=== PATIENT | female | born 1995 | race Caucasian/White ===

== ENCOUNTER 2021-07-31 00:16 | Observation (INO) | payer MEDICAID, SELFPAY ==
[2021-07-31] VITALS (8 sets, daily range): BP systolic 103–120; BP diastolic 61–75; PULSE 62–98; RESP 16–18; TEMP 36.3–37.3; O2SAT 90–100; BMI 19.2; BMI 19.1
[2021-07-31 00:53] LABS: Absolute Lymphocyte Count 1.59 X10^3/uL (0.83-4.51); Basophil# 0.02 X10^3/uL; Basophil% 0.2 % (0-1); Eosinophil# 0.16 X10^3/uL; Eosinophils% 1.9 % (0-5); Hematocrit 40.3 % (37-47); Hemoglobin 13.6 g/dL (12.0-15.0); Lymphocyte # 1.59 X10^3/ul (0.83-4.51); Lymphocyte % 19.3 % (19-41); Mean Corp Hgb Conc 33.7 g/dL (32-36); Mean Corpuscular Volume 94.8 fL (81-99); Mean Platelet Vol. 9.2 fl (6.2-12.0); Monocyte# 0.47 X10^3/uL; Monocyte% 5.7 % (0-10); NRBC Flagged by Analyzer 0 % (0-5); Neutrophil # 5.99 X10^3/uL (2.7-7.7); Neutrophil % 72.7 % (47-70); Platelet Count 284 K/mm3 (150-450); RBC Distribution Width CV 11.9 % (11.6-14.6); RBC Distribution Width SD 41.4 fl (35.1-43.9); Red Blood Count 4.25 M/mm3 (4.2-5.4); White Blood Count 8.3 K/mm3 (4.4-11.0)
[2021-07-31 01:15] LABS: Anion Gap 7 (5-15); BUN 9 mg/dL (7-18); Chloride 105 mmol/L (98-107); Creatinine, Serum 0.82 mg/dL (0.55-1.02); EST Glomerular Filtration Rate 91 mL/min (>60); Est Glom Filt Rate - Afr Amer 110 mL/min (>60); Estimated Creatinine Clearance 79.54 ml/min; Glucose 87 mg/dL (74-106); Potassium 3.4 mmol/L (3.5-5.1); Sodium Level 141 mmol/L (136-145)
[2021-07-31 01:18] LABS: Alcohol, Blood (Medical)-Serum < 3.0 mg/dL
[2021-07-31 01:20] LABS: Internal QC Validated? YES +Cl - CLEAR BKGD; Pregnancy, Serum, hCG Quali. NEGATIVE Negative
--- NOTE | 2021-07-31 02:47 | PCM.HP.STD ---
HPI - General HPI Narrative RAYMUNDO HOFF, is a 26 F with a significant history of anxiety depression; questionable PTSD; tobacco abuse and substance abuse who came in with another person (boy)for a joint detoxification. Patient's drug of choice is heroin and fentanyl. She has been using heroin and fentanyl for a year and about a month or 2 months. She does not know the amount she uses per day. However she uses a multiple times in a day: at least 3 times in a day. Last time she used the drugs above was about 4 hours before presentation. Occasionally she also smokes marijuana. [facility] Medical History Anxiety Depression Substance abuse Home Medications NK 07/31/21 [History Last Taken Unknown] Allergy/AdvReac Type Severity Reaction Status Date / Time No Known Allergies Allergy Verified 07/31/21 00:19 Family History other other (Denies knowledge of any paternal medical maternal medical history) Surgical History no surgical history no surgical history Social History Smoking Status: Current every day smoker tobacco type: cigarettes ROS ROS Narrative Constitutional: Denies fever, chills, fatigue, anorexia and change in weight Eyes: Denies blurry vision, change in eye color, change in vision, discharge from eye(s), double vision, erythema, eye pain, loss of vision or other HEENT: Denies abnormal hearing, dysphagia, ear pain, epistaxis, headache(s), hearing loss, nasal congestion, nasal discharge, post nasal drip, sinus pressure, sore throat or other Cardiovascular: Denies chest pain or palpitations. Denies dyspnea on exertion, orthopnea and paroxysmal nocturnal dyspnea Respiratory/Chest: Denies cough, excessive phlegm production, shortness of breath with exertion and wheezing Gastrointestinal: Denies abdominal pain, coffee ground emesis, constipation, diarrhea, dyspepsia, hematemesis, hematochezia, loose stools, melena, nausea, vomiting or other Genitourinary: Denies burning urination, difficulty urinating, dysuria, hematuria, nocturia, urinary frequency, urinary hesitancy, urinary incontinence, urinary urgency or other Musculoskeletal: Denies arthralgias, back pain, joint pain, joint stiffness, joint swelling, myalgias, neck pain or other Neurologic: Denies abnormal gait, abnormal speech, confusion, disequilibrium, dizziness, focal weakness, headache(s), numbness, paresthesias, seizure-like activity, seizures, syncope, tingling, tremor(s) or other Psychiatric: Denies anxiety, depression, homicidal ideation, suicidal ideation or other Endocrinology: Denies change in body appearance, cold intolerance, excessive sweating, heat intolerance, polydipsia, polyuria or other Hematologic/Lymphatic: Denies anemia, easy bleeding, easy bruising, lymphadenopathy or other Integumentary: Denies rashes Allergic/Immunologic: Denies rhinitis, hives, eczema, asthma or other Vital Signs Vital Signs Vital Signs: 07/31/21 00:17 Temperature 97.3 F L Temperature Source Temporal Pulse Rate 98 Respiratory Rate 16 Blood Pressure 120/75 Blood Pressure Mean 90 Pulse Ox 98 Oxygen Delivery Method Room Air Weight Weight: 47.627 kg Body Mass Index (BMI) 19.2 Physical Exam Narrative Physical exam: General: Well-nourished, well-developed. Head: Normocephalic, atraumatic, no tenderness Eyes: PERRLA, EOMI ENT, no trauma, moist mucous membranes, no rhinorrhea Neck: Nontender, full range of motion, no spinal tenderness, deformities, step-off CVS: Regular rate and rhythm. S1-S2 present. No murmur, gallop or rub. Respiratory : clear to auscultation bilaterally, chest wall nontender, no wheezing Abdomen: Soft, nontender, nondistended, normal bowel sounds, no masses : Deferred Back: Nontender, no CVA tenderness, no midline spinal tenderness, deformities, step-offs Extremities: Nontender full range of motion, no trauma Skin: Normal color, no trauma, abrasions Neuro: Alert, oriented, cranial nerves II through XII grossly intact. Psychiatry: Normal mood. Normal affect. Not depressed. Not anxious. Results Lab / Micro Data Result Diagrams: 07/31/21 00:40 07/31/21 00:40 Labs: Laboratory Results - last 24 hr 07/31/21 00:40: WBC 8.3, RBC 4.25, Hgb 13.6, Hct 40.3, MCV 94.8, MCH 32.0, MCHC 33.7, RDW Std Deviation 41.4, RDW Coeff of Ab 11.9, Plt Count 284, MPV 9.2, Immature Gran % (Auto) 0.200, Neut % (Auto) 72.7 H, Lymph % (Auto) 19.3, Desha % (Auto) 5.7, Eos % (Auto) 1.9, Baso % (Auto) 0.2, Absolute Neuts (auto) 6.0, Absolute Lymphs (auto) 1.59, Nucleated RBC % 0 07/31/21 00:40: Sodium 141, Potassium 3.4 L, Chloride 105, Carbon Dioxide 29.0, Anion Gap 7, BUN 9, Creatinine 0.82, Estim Creat Clear Calc 79.54, Est GFR (MDRD) Af Amer 110, Est GFR (MDRD) Non-Af 91, BUN/Creatinine Ratio 11.0, Glucose 87, Calcium 9.0 07/31/21 00:40: Ethyl Alcohol < 3.0 07/31/21 00:40: Serum , Qual NEGATIVE Assessment & Plan Assessment/Plan (1) Desire for detoxification: (2) Heroin abuse: (3) Fentanyl dependence: (4) Tobacco abuse: PLAN: Opioid dependence with desire for detoxification Patient be started on Subutex and other adjunctive medications: Gabapentin as needed; dicyclomine as needed; Vistaril as needed; methocarbamol as needed; clonidine as needed; Imodium as needed; trazodone as needed and Zofran as needed. Monitor COWS and CINA score Tobacco abuse Counseled Declined nicotine patch Hypokalemia Potassium is mildly decreased at 3.4; asymptomatic. Repeat BMP next day. Marijuana abuse Counseled. DVT prophylaxis Low risk Encourage to ambulate Charges/Coding Visit Charges Inpatient E&M: 80719 Init Hosp L2
[2021-07-31 03:03] LABS: Mucous, Urine 0 SEEN /hpf (<or=2+); Red Blood Cells-Urine 0 SEEN /hpf (0-5)
[2021-07-31 03:05] LABS: Color, Urine Yellow (Yellow); Glucose, Dipstick Normal (Normal); Ketone-Dipstick Negative (Negative); Leukocyte Esterase-Dipstick 25 /ul (Negative); Nitrite-Dipstick Negative (Negative); Occult Blood-Urine Negative /ul (Negative); Protein-Dipstick 30 mg/dl (Negative); Specific Gravity, Urine 1.015 (1.002-1.030); Urine Clarity Clear (Clear); Urine Urobilinogen 4 mg/dl (Normal); Urine pH 6.5 (5.0 - 8.0)
[2021-07-31 03:12] LABS: Urine Bilirubin Dipstick 1 mg/dL (Negative)
[2021-07-31 03:13] LABS: Bacteria 4+ /hpf (None Seen); Squamous Epithelial Cells - UA 0-5 SEEN /hpf (5-10); Transitional Epithelial - Ur 0-5 SEEN /hpf (0-5); White Blood Cells 0-5 SEEN /hpf (0-5)
[2021-07-31 03:20] LABS: Amphetamine Urine VISTA POSITIVE (<1000 ng/mL); Barbiturate Urine VISTA NEGATIVE (< 200 ng/mL); Benzodiazepine Urine VISTA NEGATIVE (< 200 ng/mL); Cocaine Urine VISTA NEGATIVE (< 300 ng/mL); Ecstacy Urine VISTA NEGATIVE (< 500 ng/mL); Methadone Urine VISTA NEGATIVE (< 300 ng/mL); PCP Urine VISTA NEGATIVE (< 25 ng/mL); THC Urine VISTA POSITIVE (< 50 ng/mL); Vista UDS pH Range 6
--- NOTE | 2021-07-31 03:48 | EX.ED.SAOD ---
HPI History of Present Illness Chief Complaint: Substance Abuse Narrative Narrative: 26-year-old female presenting with desire for detox from opioids. She states that she does fentanyl and heroin. She states that she snorts this. Patient states that she does do other drugs but is not addicted to them. She states he is never detoxed before. She states that her last use was 4 hours ago. She currently does not have any significant symptoms. She denies significant medical history. [facility] Medical History Anxiety Depression Substance abuse Home Medications NK 07/31/21 [History Last Taken Unknown] Allergy/AdvReac Type Severity Reaction Status Date / Time No Known Allergies Allergy Verified 07/31/21 00:19 Family History Other Unknown family medical history Family History other Surgical History no surgical history Social History household members: friend(s) and other number of children: 2 Smoking Status: Current every day smoker tobacco type: cigarettes ROS ROS ED Constitutional Constitutional ED: Denies fever(s) or weight loss Eyes Eyes: Denies blurry vision or diplopia ENT ENT ED: Denies rhinorrhea or sore throat Cardiovascular Cardiovascular: Denies chest pain or palpitations Respiratory/Chest Respiratory/Chest: Denies cough or dyspnea Gastrointestinal Gastrointestinal: Denies abdominal pain, diarrhea, nausea or vomiting Genitourinary Genitourinary ED: Denies dysuria Musculoskeletal Musculoskeletal: Denies arthralgias or myalgias Integumentary Denies rash Neurologic Neurologic: Denies headache(s) or weakness Psychiatric Psychiatric: Denies anxiety or depression EXAM Physical Exam Const Vital Signs: 07/31/21 00:17 Temperature 97.3 F L Temperature Source Temporal Pulse Rate 98 Respiratory Rate 16 Blood Pressure 120/75 Blood Pressure Mean 90 Pulse Ox 98 Oxygen Delivery Method Room Air Positive well nourished General Appearance ED: NAD; Negative for pallor HEENT Reports moist mucous membranes atraumatic Eyes PERRL and EOMs intact bilaterally Cardio regular rate and regular rhythm Neuro oriented x3 Sensorium / Orientation: alert Psych mental status grossly normal and thought process normal Skin General Skin Exam: Negative for jaundice or pallor Rashes: no rashes MDM MDM MDM Narrative Medical decision making narrative: Patient presenting with desire to detox from opioids. She admits to fentanyl and heroin. Her toxicology screen is negative for opioids however this might be because she does fentanyl. She is positive for amphetamines and cannabinoids. CBC and BMP are unremarkable. EtOH is negative. Patient's urinalysis shows 4+ bacteria but she is not having any symptoms of UTI. Discussed with hospitalist for admission. Impression: 1. Fentanyl abuse 2. Request for detox Lab Data Labs: Laboratory Results - last 24 hr 07/31/21 07/31/21 07/31/21 00:40 00:40 00:40 WBC 8.3 RBC 4.25 Hgb 13.6 Hct 40.3 MCV 94.8 MCH 32.0 MCHC 33.7 RDW Std Deviation 41.4 RDW Coeff of Ab 11.9 Plt Count 284 MPV 9.2 Immature Gran % (Auto) 0.200 Neut % (Auto) 72.7 H Lymph % (Auto) 19.3 [place] % (Auto) 5.7 Eos % (Auto) 1.9 Baso % (Auto) 0.2 Absolute Neuts (auto) 6.0 Absolute Lymphs (auto) 1.59 Nucleated RBC % 0 Sodium 141 Potassium 3.4 L Chloride 105 Carbon Dioxide 29.0 Anion Gap 7 BUN 9 Creatinine 0.82 Estim Creat Clear Calc 79.54 Est GFR (MDRD) Af Amer 110 Est GFR (MDRD) Non-Af 91 BUN/Creatinine Ratio 11.0 Glucose 87 Calcium 9.0 Serum , Qual Urine Color Urine Clarity Urine pH Ur Specific [place] Urine Protein Urine Glucose (UA) Urine Ketones Urine Occult Blood Urine Nitrite Urine Bilirubin Urine Urobilinogen Ur Leukocyte Esterase Urine RBC Urine WBC Ur Squamous Epith Cells Ur Transition Epith Cell Urine Bacteria Urine Mucus Urine Opiates Screen Urine Methadone Screen Ur Barbiturates Screen Ur Phencyclidine Scrn Ur Amphetamines Screen U Methamphetamin-MDMA U Benzodiazepines Scrn Urine Cocaine Screen U Cannabinoids Screen Ur Drug Screen Comment Ethyl Alcohol < 3.0 07/31/21 07/31/21 07/31/21 00:40 02:55 02:55 WBC RBC Hgb Hct MCV MCH MCHC RDW Std Deviation RDW Coeff of Ab Plt Count MPV Immature Gran % (Auto) Neut % (Auto) Lymph % (Auto) [place] % (Auto) Eos % (Auto) Baso % (Auto) Absolute Neuts (auto) Absolute Lymphs (auto) Nucleated RBC % Sodium Potassium Chloride Carbon Dioxide Anion Gap BUN Creatinine Estim Creat Clear Calc Est GFR (MDRD) Af Amer Est GFR (MDRD) Non-Af BUN/Creatinine Ratio Glucose Calcium Serum , Qual NEGATIVE Urine Color Yellow Urine Clarity Clear Urine pH 6.5 Ur Specific [place] 1.015 Urine Protein 30 H Urine Glucose (UA) Normal Urine Ketones Negative Urine Occult Blood Negative Urine Nitrite Negative Urine Bilirubin 1 H Urine Urobilinogen 4 H Ur Leukocyte Esterase 25 H Urine RBC 0 SEEN Urine WBC 0-5 SEEN Ur Squamous Epith Cells 0-5 SEEN Ur Transition Epith Cell 0-5 SEEN Urine Bacteria 4+ Urine Mucus 0 SEEN Urine Opiates Screen NEGATIVE Urine Methadone Screen NEGATIVE Ur Barbiturates Screen NEGATIVE Ur Phencyclidine Scrn NEGATIVE Ur Amphetamines Screen POSITIVE H U Methamphetamin-MDMA NEGATIVE U Benzodiazepines Scrn NEGATIVE Urine Cocaine Screen NEGATIVE U Cannabinoids Screen POSITIVE H Ur Drug Screen Comment Ethyl Alcohol Discharge Plan Disposition Disposition: Acute Care Hospital [facility] Discharge Date/Time: 07/31/21 03:25
[2021-07-31] MEDS: hydrOXYzine PAM 25 MG Capsule 50 MG PO ×2 (04:49→20:04)
--- NOTE | 2021-07-31 07:32 | PCM.HOSP.N ---
Hospitalist Note Patient is a 26-year-old lady with history of opioid dependence who presented to the emergency department requesting detoxification. Admitted to regular nursing floor where patient is currently being managed Patient seen and examined, her initial assessment including history and physical diagnostic data and management orders reviewed will follow
[2021-07-31] MEDS: Acetaminophen 325 MG Tablet 650 MG PO (16:41)
[2021-07-31] MEDS: Dicyclomine 10 MG Capsule 20 MG PO (20:04)
[2021-07-31] MEDS: Buprenorphine HCl 2 MG TAB.SUBL SL (21:50)
[2021-08-01 03:56] VITALS: BP 98/68; PULSE 62; RESP 16; TEMP 36.6; O2SAT 98
[2021-08-01] MEDS: Buprenorphine HCl 2 MG TAB.SUBL SL ×3 (05:10→20:07)
[2021-08-01 07:08] LABS: Anion Gap 2 (5-15); BUN 14 mg/dL (7-18); BUN/Creat Ratio 17.6 RATIO (10-20); Calcium,Total 8.9 mg/dL (8.5-10.1); Chloride 108 mmol/L (98-107); EST Glomerular Filtration Rate 94 mL/min (>60); Est Glom Filt Rate - Afr Amer 114 mL/min (>60); Estimated Creatinine Clearance 81.14 ml/min; Glucose 87 mg/dL (74-106); Potassium 4.1 mmol/L (3.5-5.1); Sodium Level 137 mmol/L (136-145)
[2021-08-01 08:59] VITALS: BP 102/62; PULSE 71; RESP 12; TEMP 36.7; O2SAT 100
[2021-08-01 12:48] VITALS: BP 114/77; PULSE 98; RESP 12; TEMP 36.6; O2SAT 98
[2021-08-01] MEDS: Gabapentin 300 MG Capsule PO (12:54)
--- NOTE | 2021-08-01 14:17 | CHAPLAIN ---
Type of Pastoral Visit _x__ Initial Visit ___ Follow-up Visit ___ On-call Visit ___ General Patient Visit ___ Spiritual Assessment ___ Family Conference ___ Bereavement ___ Rapid Response ___ Code Blue ___ Other (describe below) Pastoral Care Referral From _x__ Patient ___ Family ___ Nurse ___ Physician ___ Oil Operator ___ Sr Account Executive ___ Other (describe below) Sacrament/Intervention _x__ Active listening ___ Anointing ___ Buddhism ___ Bereavement ___ Communion _x__ Renée exploration ___ _x__ Life review _x__ Prayer ___ Reconciliation ___ Sacrament of Sick _x__ Supportive presence ___ Wedding ___ Other (describe below) Pastoral Comments patient had requested visit from claim examiner upon entering [facility] program here; pt has two young children and is missing them; pt states need to make change in life, I've upset a lot of people in my life and many in my family don't understand; pt willing to go to rehab but admits to some anxious thought about it; pt asks for a Bible and welcomes presence and prayer support
[2021-08-01 17:29] VITALS: BP 109/66; PULSE 79; RESP 16; TEMP 36.6; O2SAT 98
--- NOTE | 2021-08-01 19:31 | PCM.PN.HOSP ---
Subjective Subjective Patient was seen and examined today, she does not appear anxious and she has no complaints of any muscle pain, nausea, vomiting, or nervousness. Objective Data Objective Data Vital Signs: Vital Signs Temp Pulse Resp BP Pulse Ox 97.8 F 79 16 109/66 98 08/01/21 17:29 08/01/21 17:29 08/01/21 17:29 08/01/21 17:29 08/01/21 17:29 Oxygen Delivery Method Room Air Weight: 47.4 kg Body Mass Index (BMI) 19.1 Intake & Output: Intake and Output for Last 24 Hours 07/30/21 07/31/21 08/01/21 23:59 23:59 23:59 Intake Total 920 / 1220 1440 / 1440 Balance 920 / 1220 1440 / 1440 Lab / Micro Data Result Diagrams: 07/31/21 00:40 08/01/21 06:18 Labs: Laboratory Results - last 24 hr 08/01/21 06:18: Sodium 137, Potassium 4.1, Chloride 108 H, Carbon Dioxide 27.0, Anion Gap 2 L, BUN 14, Creatinine 0.80, Estim Creat Clear Calc 81.14, Est GFR (MDRD) Af Amer 114, Est GFR (MDRD) Non-Af 94, BUN/Creatinine Ratio 17.6, Glucose 87, Calcium 8.9 Physical Exam Const alert, oriented x3 and no apparent distress General Appearance: cooperative, well kempt and well developed Orientation / Consciousness: awake, oriented to person, oriented to place and oriented to time HEENT normocephalic and moist oral mucous membranes Eyes PERRL, EOMs intact bilaterally and conjunctivae normal Neck nuchal rigidity, supple, no JVD, thyroid normal and no carotid bruits General: trachea midline Resp normal respiratory effort and clear to auscultation bilaterally Auscultation: Negative for rales, rhonchi or wheezes Cardio regular rate, regular rhythm, S1 normal heart sound, S2 normal heart sound, no murmurs, no rub and no gallops GI normal to inspection, nondistended, normoactive bowel sounds, soft to palpation, non-tender and non-distended Extremity normal to inspection and no clubbing, cyanosis or edema Skin no rashes or lesions noted General Skin Exam: no breakdown Neuro oriented x3, CN's II-XII intact bilaterally, no focal motor deficits and no sensory deficits noted Sensorium / Orientation: awake and alert Speech: speech normal Psych affect normal Assessment & Plan Assessment/Plan (1) Heroin abuse: PLAN: 1. Acute opioid withdrawal-patient is minimally symptomatic at this time, continue present medications as outlined previously #2 chronic opioid addiction-patient states that she wants to do inpatient detox at this time, present medications will be continued Charges/Coding Visit Charges Inpatient E&M: 73556 Subs Hosp L2
[2021-08-01 20:25] VITALS: O2SAT 97
[2021-08-01 20:36] VITALS: BP 107/67; PULSE 77; RESP 18; TEMP 37.3; O2SAT 100
[2021-08-02 01:55] VITALS: BP 91/57; PULSE 60; RESP 16; TEMP 36.4; O2SAT 98
[2021-08-02] MEDS: Buprenorphine HCl 2 MG TAB.SUBL SL ×3 (05:06→19:48)
[2021-08-02 07:42] VITALS: BP 93/72; PULSE 63; RESP 12; TEMP 36.6; O2SAT 99
[2021-08-02 09:12] VITALS: O2SAT 99
--- NOTE | 2021-08-02 10:02 | ADDICTION ---
TW met with pt to complete ASAM, AUDIT, DUDIT, MSE, MAT, and d/c plan. Pt reports being interested in residential treatment. TW filled out MAT for [facility]. TW called [facility] and they are admitting her tomorrow. Transportation will arrive at 11:30AM for transition to residential treatment.
[2021-08-02 13:44] VITALS: BP 93/57; PULSE 76; RESP 12; TEMP 36.5; O2SAT 98
[2021-08-02 15:02] VITALS: BP 96/51; PULSE 66; RESP 14; TEMP 36.7; O2SAT 99
--- NOTE | 2021-08-02 19:15 | PCM.PN.HOSP ---
Subjective Subjective Patient was seen and examined today, she does not complain of any nervousness, tremor, or muscle pain. She is due to go to an inpatient detox center tomorrow morning for continued detox services. Objective Data Objective Data Vital Signs: Vital Signs Temp Pulse Resp BP Pulse Ox 98.0 F 66 14 96/51 L 99 08/02/21 15:02 08/02/21 15:02 08/02/21 15:02 08/02/21 15:02 08/02/21 15:02 Oxygen Delivery Method Room Air Weight: 47.4 kg Body Mass Index (BMI) 19.1 Intake & Output: Intake and Output for Last 24 Hours 07/31/21 08/01/21 08/02/21 23:59 23:59 23:59 Intake Total 920 / 1220 1440 / 1440 1040 / 1040 Balance 920 / 1220 1440 / 1440 1040 / 1040 Lab / Micro Data Result Diagrams: 07/31/21 00:40 08/01/21 06:18 Physical Exam Const alert, oriented x3, no apparent distress and healthy appearing General Appearance: cooperative, well kempt and well developed Orientation / Consciousness: awake, oriented to person, oriented to place and oriented to time HEENT normocephalic and moist oral mucous membranes Eyes PERRL, EOMs intact bilaterally and conjunctivae normal Neck nuchal rigidity, supple, no JVD, thyroid normal and no carotid bruits General: trachea midline Resp normal respiratory effort and clear to auscultation bilaterally Auscultation: Negative for rales, rhonchi or wheezes Cardio regular rate, regular rhythm, no murmurs, no rub and no gallops GI normal to inspection, nondistended, normoactive bowel sounds, soft to palpation, non-tender and non-distended Extremity no clubbing, cyanosis or edema Skin no rashes or lesions noted General Skin Exam: no breakdown Neuro oriented x3, CN's II-XII intact bilaterally, no focal motor deficits and no sensory deficits noted Sensorium / Orientation: awake and alert Speech: speech normal Psych affect normal Assessment & Plan Assessment/Plan (1) Fentanyl dependence: (2) Heroin abuse: PLAN: 1. Acute opioid withdrawal-patient is minimally symptomatic at this time, continue present medications as outlined previously #2 chronic opioid addiction-patient states that she wants to do inpatient detox at this time, present medications will be continued, plan on discharging the patient in the morning to an inpatient detox service center Charges/Coding Visit Charges Inpatient E&M: 84218 Subs Hosp L2
[2021-08-02] MEDS: Acetaminophen 325 MG Tablet 650 MG PO (19:47)
[2021-08-02 19:54] VITALS: BP 104/70; PULSE 76; RESP 14; TEMP 37.1; O2SAT 97
[2021-08-03 02:00] VITALS: BP 101/66; PULSE 73; RESP 14; TEMP 36.9; O2SAT 98
[2021-08-03 07:40] VITALS: BP 102/64; PULSE 64; RESP 16; TEMP 36.6; O2SAT 99
[2021-08-03] MEDS: Buprenorphine HCl 2 MG TAB.SUBL SL (07:43)
[2021-08-03 07:48] VITALS: O2SAT 99
--- NOTE | 2021-08-03 10:49 | PCM.DC ---
Discharge Instructions Diet Discharge Diet: No restrictions Activity Discharge Activity: Return to Normal Activity Follow Up Care Test Results: Test results from this visit will be discussed in further detail at your follow-up appointment, if applicable. Discharge Plan Admission Admit Date/Time: 07/31/21 02:49 Primary Reason for Your Visit: opioid detox Attending Provider: Emile Troncoso Primary Care Provider: Care Physician,No Primary Discharge Orders/Prescriptions Prescriptions: No Action NK RF: 0 Referrals / Follow Up: Care Physician,No Primary [Primary Care Provider] - Disposition Disposition (needs filled in before D/C Order can be placed): Home, Self Care
--- NOTE | 2021-08-03 18:42 | DS.PCM_ITS ---
Providers Date of Admission: 07/31/21 Date of Discharge: 08/03/21 Primary Care Physician: No Primary Care Phys Reason For Visit: DESIRE FOR DETOXIFICATION Diagnosis Discharge Diagnosis (1) Fentanyl dependence: Status: Acute Code(s): F11.20 - Opioid dependence, uncomplicated (2) Heroin abuse: Status: Acute Code(s): F11.10 - Opioid abuse, uncomplicated Plan: 1. Acute opioid withdrawal #2 chronic opioid addiction Medications at Discharge Home Medications NK 07/31/21 Hospital Course Operations None Procedures None Summary of Care Provided Minutes Spent on Discharge: 31 Hospital Course: This 26-year-old white female was seen in the emergency room at [facility] requesting services for detox from fentanyl and heroin, patient admitted to snorting both, she denied any previous history of admission for detox. Patient was admitted to PCU, orders were entered using the opioid detox order set, during the patient's hospitalization, she met with addiction social media marketing manager, she had no untoward events during her hospital stay. Patient agreed to go to an inpatient detox center. On 08/03/2021, patient was seen and examined: On examination she appeared in good health and spirits, she does not appear to be in any distress. Vital signs as documented. Skin warm and dry and without overt rashes. Neck without JVD, thyroid appears normal, trachea is midline, neck is supple. Lungs clear, normal air movement was noted. Heart exam notable for regular rhythm, normal sounds and absence of murmurs, rubs or gallops. Abdomen unremarkable and without evidence of organomegaly, masses, or abdominal aortic enlargement, bowel sounds are present in all 4 quadrants, no abdominal tenderness was noted. Extremities nonedematous, no cyanosis was noted, no clubbing was noted. Neuro: Cranial nerves II through XII are grossly intact, no focal motor deficits were noted, sensation to light touch and pinprick is intact, motor exam 5/5 throughout. Psych: Patient is alert and oriented x3, she does not appear anxious or depressed, she does not appear agitated. On 08/03/2021, patient was seen and examined and felt to be in stable condition for discharge to an inpatient detox center. Weight / BMI Weight Weight: 47.4 kg Body Mass Index (BMI) 19.1 ABG / Lab / Microbiology Data Result Diagrams: 07/31/21 00:40 08/01/21 06:18 D/C Instructions Discharge Diet: No restrictions Meaningful Use Info Meaningful Use Diagnoses (Choose all that apply): None applicable Discharge Plan Admission Admit Date/Time: 07/31/21 02:49 Primary Reason for Your Visit: opioid detox Attending Provider: Emile Troncoso Primary Care Provider: Care Physician,No Primary Discharge Orders/Prescriptions Prescriptions: No Action NK RF: 0 Referrals / Follow Up: Care Physician,No Primary [Primary Care Provider] - Disposition Disposition (needs filled in before D/C Order can be placed): Home, Self Care Charges/Coding Visit Charges Inpatient E&M: 37813 Disch Hosp
== END 2021-08-03 11:30 | disposition other institution (70) ==
LOC: ED 01:13 → PCU 05:21
PROVIDERS: Admitting Provider Hospitalist; Emergency Provider Student in an Organized Health Care Education/Training Program; Visit Provider Internal Medicine
DX: F11.23 Opioid dependence with withdrawal (principal); E87.6 Hypokalemia; F12.10 Cannabis abuse, uncomplicated; R82.71 Bacteriuria; F17.210 Nicotine dependence, cigarettes, uncomplicated
CPT/HCPCS: 80048; 80307; 81001; 82077; 84703; 85025; 97802; 99283; 99406; H0012

== ENCOUNTER 2023-03-05 16:39 | Inpatient (IN) | payer MEDICAID, SELFPAY ==
[2023-03-05] VITALS (11 sets, daily range): BP systolic 93–129; BP diastolic 58–85; PULSE 54–88; RESP 15–16; TEMP 36.6–36.8; O2SAT 97–100; BMI 22.6
[2023-03-05 17:15] LABS: Absolute Lymphocyte Count 1.99 X10^3/uL (0.83-4.51); Absolute Neutrophil Count 11.5 X10^3/uL (2.0-7.7); Basophil# 0.02 X10^3/uL; Basophil% 0.1 % (0-1); Eosinophil# 0.03 X10^3/uL; Eosinophils% 0.2 % (0-5); Hematocrit 39.6 % (37-47); Hemoglobin 13.7 g/dL (12.0-15.0); Lymphocyte # 1.99 X10^3/ul (0.83-4.51); Lymphocyte % 13.5 % (19-41); Mean Corp Hgb Conc 34.6 g/dL (32-36); Mean Corpuscular Hgb 33.1 pg (27.0-32.0); Mean Corpuscular Volume 95.7 fL (81-99); Mean Platelet Vol. 8.9 fl (6.2-12.0); Monocyte# 1.07 X10^3/uL; Monocyte% 7.3 % (0-10); NRBC Flagged by Analyzer 0 % (0-5); Neutrophil # 11.53 X10^3/uL (2.7-7.7); Neutrophil % 78.3 % (47-70); Platelet Count 396 K/mm3 (150-450); RBC Distribution Width CV 12.2 % (11.6-14.6); RBC Distribution Width SD 42.3 fl (35.1-43.9); Red Blood Count 4.14 M/mm3 (4.2-5.4); White Blood Count 14.7 K/mm3 (4.4-11.0)
[2023-03-05] MEDS: Oxytocin 10 UNITS/ML Vial IM (17:27)
--- NOTE | 2023-03-05 17:48 | PCM.HP.OB ---
HPI - General General Date of Admission: 03/05/23 Date of Service: 03/05/23 Chief Complaint: labor HPI Narrative RAYMUNDO HOFF, is a 27 F at 38w6d who presents in labor. [facility] Medical History Anxiety Depression Substance abuse Home Medications NK 07/31/21 [History Last Taken Unknown] Allergy/AdvReac Type Severity Reaction Status Date / Time No Known Allergies Allergy Verified 03/05/23 16:42 Family History Other Unknown family medical history Family History other Surgical History no surgical history Social History household members: friend(s) and other number of children: 2 Smoking Status: Current every day smoker tobacco type: cigarettes NST FHR Rate Baby A Baseline: 120 Variability:: Minimal and Moderate Accelerations:: None Decelerations:: Prolonged (60 bpm) Vital Signs Vital Signs Vital Signs: 03/05/23 16:56 03/05/23 16:56 03/05/23 16:58 Pulse Rate 88 Blood Pressure 129/74 H BP Systolic 129 BP Diastolic 74 Pulse Ox 100 03/05/23 16:58 03/05/23 17:11 03/05/23 17:11 Pulse Rate 58 L 55 L Blood Pressure BP Systolic BP Diastolic Pulse Ox 100 Weight Weight: 124 lb Body Mass Index (BMI) 22.6 Labs Labs Labs: Blood Type Pending Antibody Screen Pending Hct 39.6 % (37-47) Hgb 13.7 g/dL (12.0-15.0) Syphilis Total Ab Non-reactive Assessment & Plan (1) 38 weeks gestation of : PLAN: Pt presented to L&D and precipitously delivered. See delivery report. Transfer of care from [facility]. She did not complete 3 hour GTT, so will check fasting BG in AM. GBS unknown. Rh negative- rhogam candidate. Social work consult . (2) Precipitous delivery: (3) Tobacco use: (4) History of depression: (5) History of heroin use: (6) Incarceration: (7) History of gestational diabetes: (8) Elevated glucose level: (9) with care elsewhere: (10) heart rate decelerations, delivered:
[2023-03-05 17:50] LABS: Syphilis Antibodies Non-reactive
--- NOTE | 2023-03-05 17:59 | PCM.OPRPT ---
Problems Associated Problem List Diagnoses (1) heart rate decelerations, delivered: (2) with care elsewhere: (3) Elevated glucose level: (4) History of gestational diabetes: (5) Incarceration: (6) History of heroin use: (7) History of depression: (8) Tobacco use: (9) Precipitous delivery: (10) 38 weeks gestation of : Report of Operation Date of Procedure: 03/05/23 Pre-Operative Diagnosis: 38 week gestation, labor, prolonged heart rate deceleration Post-Operative Diagnosis: As above Surgery/Procedure Performed:: Description of Surgical Findings:: VFI in OA position with thick meconium stained fluid and loose nuchal cord x 2. Calcified placenta. Surgeon: Luisa Hodges Type of Anesthesia: None Special Medications: None Specimen's removed: Placenta Drains: None Estimated Blood Loss (mL): 100 Fluids Replaced: N/A Description of Procedure: I was called for delivery when patient was noted to be 8 cm dilated. Upon arrival the patient was being transported to the OR as FHT wee 60 bpm for several minutes and patient was noted to be 9.5 cm dilated with an anterior lip at that time. Once in the OR the patient was moved to the OR bed and re checked. Cvx 10/100/0. FHT 60 bpm. Patient began pushing and with 1 contraction the head was delivered in OA position, followed by the shoulders and body spontaneously and without any force or delay. A loose nuchal cord x 2 was noted and the was delivered through the nuchal cord. The cord was clamped and cut after a slight delay. was handed off to awaiting nursery staff. Cord blood and cord gases were sent. The placenta was delivered with gentle traction and noted to be normal appearing and intact. The placenta was calcified. Fundus firm and bleeding hemostatic. IM pitocin was given upon delivery of the placenta. No lacerations were noted. A vaginal sweep was performed. Grafts/Implants Used: None Complications None Admit VTE Documentation VTE Present on Admission: No
[2023-03-05 23:04] LABS: Amphetamine Urine VISTA NEGATIVE (<1000 ng/mL); Barbiturate Urine VISTA NEGATIVE (< 200 ng/mL); Benzodiazepine Urine VISTA NEGATIVE (< 200 ng/mL); Cocaine Urine VISTA NEGATIVE (< 300 ng/mL); Ecstacy Urine VISTA NEGATIVE (< 500 ng/mL); Methadone Urine VISTA NEGATIVE (< 300 ng/mL); PCP Urine VISTA NEGATIVE (< 25 ng/mL); THC Urine VISTA NEGATIVE (< 50 ng/mL); Vista UDS pH Range 6
[2023-03-06 03:05] VITALS: BP 105/65; PULSE 56; RESP 16; TEMP 36.1; O2SAT 97
[2023-03-06] MEDS: Acetaminophen 500 MG Tablet 1000 MG PO ×2 (04:34→22:35)
[2023-03-06 07:30] VITALS: BP 93/64; PULSE 60; RESP 16; TEMP 36.6; O2SAT 98
--- NOTE | 2023-03-06 08:29 | PN.OBGYN_ITS ---
Subjective Subjective Denies complaints Objective Data Objective Data Vital Signs: Vital Signs Temp Pulse Resp BP Pulse Ox O2 Del Method 97.8 F 60 16 93/64 98 Room Air 03/06/23 07:30 03/06/23 07:30 03/06/23 07:30 03/06/23 07:30 03/06/23 07:30 03/06/23 07:30 Oxygen Delivery Method Room Air Weight: 124 lb Body Mass Index (BMI) 22.6 Intake & Output: Intake and Output for Last 24 Hours 03/04/23 03/05/23 03/06/23 23:59 23:59 23:59 Output Total 400 / 400 Balance -400 / -400 Lab / Micro Data 03/05/23 17:05 Labs: Laboratory Results - last 24 hr 03/05/23 17:05: WBC 14.7 H, RBC 4.14 L, Hgb 13.7, Hct 39.6, MCV 95.7, MCH 33.1 H , MCHC 34.6, RDW Std Deviation 42.3, RDW Coeff of Ab 12.2, Plt Count 396, MPV 8.9, Immature Gran % (Auto) 0.600, Neut % (Auto) 78.3 H, Lymph % (Auto) 13.5 L, Jefferson % (Auto) 7.3, Eos % (Auto) 0.2, Baso % (Auto) 0.1, Absolute Neuts (auto) 11.5 H, Absolute Lymphs (auto) 1.99, Nucleated RBC % 0, Syphilis Total Ab Non-r eactive, Blood Type A NEGATIVE, Antibody Screen NEGATIVE, Antibody Identification Cancelled 03/05/23 22:30: Urine Opiates Screen NEGATIVE, Urine Methadone Screen NEGATIVE, Ur Barbiturates Screen NEGATIVE, Ur Phencyclidine Scrn NEGATIVE, Ur Amphetamines Screen NEGATIVE, MDMA (Ecstasy) Screen NEGATIVE, U Benzodiazepines Scrn NEGATIVE, Urine Cocaine Screen NEGATIVE, U Cannabinoids Screen NEGATIVE, Ur Drug Screen Comment Physical Exam Const alert, oriented x3 and no apparent distress HEENT normocephalic GI soft to palpation, non-tender and non-distended GI Narrative: fundus firm, mid & below umbilicus Extremity normal to inspection and no calf tenderness Assessment & Plan (1) Elevated glucose level: COMMENT: PPD#1 (2) with care elsewhere: QUALIFIERS: Trimester: third trimester Qualified Code(s): Z34.93 - Encounter for supervision of normal , unspecified, third trimester (3) Precipitous delivery: PLAN: Plan Routine PP care Elevated glucola with no 3hr GTT - needs FBS tomorrow
[2023-03-06 10:00] VITALS: BP 99/65; PULSE 65; RESP 16; TEMP 36.4; O2SAT 98
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
[2023-03-06 16:08] VITALS: BP 97/57; PULSE 74; RESP 12; TEMP 36.7; O2SAT 97
[2023-03-06 20:07] VITALS: BP 104/71; PULSE 85; RESP 18; TEMP 36.6
[2023-03-07 02:00] VITALS: BP 77/43; PULSE 57; RESP 16; TEMP 36.2; O2SAT 97
[2023-03-07 07:10] VITALS: BP 108/77; PULSE 61; RESP 16; TEMP 36.4; O2SAT 98
--- NOTE | 2023-03-07 07:44 | PCM.PROGNOTE ---
Subjective Subjective patient seen at bedside, doing well. Patient reports good pain control. lochia mild. Objective Data Objective Data Vital Signs: Vital Signs Temp Pulse Resp BP Pulse Ox O2 Del Method 97.5 F L 61 16 108/77 98 Room Air 03/07/23 07:10 03/07/23 07:10 03/07/23 07:10 03/07/23 07:10 03/07/23 07:10 03/07/23 07:10 Oxygen Delivery Method Room Air Weight: 56.245 kg Body Mass Index (BMI) 22.6 Intake & Output: Intake and Output for Last 24 Hours 03/05/23 03/06/23 03/07/23 23:59 23:59 23:59 Output Total 400 / 400 Balance -400 / -400 Lab / Micro Data 03/05/23 17:05 Physical Exam Narrative abd: soft, fundus firm. Const alert and oriented x3 General Appearance: cooperative HEENT normocephalic Neck General: normal visual inspection GI soft to palpation and non-distended GI Narrative: Fundus firm Extremity normal to inspection and no calf tenderness Skin no rashes or lesions noted Neuro oriented x3 and CN's II-XII intact bilaterally Psych mental status grossly normal Assessment & Plan Assessment/Plan (1) with care elsewhere: QUALIFIERS: Trimester: third trimester Qualified Code(s): Z34.93 - Encounter for supervision of normal , unspecified, third trimester (2) Incarceration: (3) History of heroin use: (4) History of depression: (5) Tobacco use: (6) Precipitous delivery: (7) History of gestational diabetes: (8) Elevated glucose level: (9) Vaginal delivery: PLAN: Plan PPD#2 , Doing well Routine care pain mgmt ambulation dc home
--- NOTE | 2023-03-07 07:45 | DCINST_ITS ---
Discharge Instructions Diet Discharge Diet: No restrictions Activity May resume sexual activity in: 6-8 weeks Dressing / Incision Call your doctor if you observe: Fever of 101 or Higher, Inability to urinate, Using more than 1 pad per hour and Uncontrolled pain Follow Up Care Please Follow Up With: Romi Zeng MD When: 1-2 weeks post and again at 6 weeks post . [phone] Test Results: Test results from this visit will be discussed in further detail at your follow- up appointment, if applicable. Discharge Plan Admission Admit Date/Time: 03/05/23 16:39 Attending Provider: Luisa Hodges Primary Care Provider: Care Physician,Ange Primary Discharge Orders/Prescriptions Prescriptions: New acetaminophen 500 mg Tablet 1,000 mg PO Q6H PRN PRN (Reason: Pain 1-10 Or Fever) Qty: 0 0RF ibuprofen 600 mg Tablet 600 mg PO Q6H PRN PRN (Reason: Pain Score 1-10) Qty: 0 0RF Referrals / Follow Up: Care Physician,No Primary [Primary Care Provider] - Disposition Disposition (needs filled in before D/C Order can be placed): Home, Self Care
--- NOTE | 2023-03-07 11:23 | NURSING ---
reviewed and agree with student charting that is used for educational and learning purposes.
--- NOTE | 2023-03-09 08:16 | OP.PCM_ITS ---
Report of Operation Date of Procedure: 03/09/23 Pre-Operative Diagnosis: desires sterilization Post-Operative Diagnosis: same Surgery/Procedure Performed:: laparoscopic bilateral salpingectomy Description of Surgical Findings:: Normal tubes and ovaries - small paratubal cyst on right. Surgeon: Romi Zeng warehouse team member: Isai Cha Type of Anesthesia: General and Local Special Medications: 0.5% marcaine Specimen's removed: bilateral fallopian tubes Drains: none Estimated Blood Loss (mL): <5cc Fluids Replaced: 1000cc Description of Procedure: After informed consent was obtained patient was taken to the operating room she was placed in supine position she was given anesthesia. She was then placed in the [facility] stirrups and she was prepped and draped in normal sterile fas hion. Bladder was drained prior to the start of procedure. At this time attention was turned to the vaginal portion where weighted speculum placed at posterior fornix vagina single-tooth tenaculum was used to gently grasp the internal the cervix. uterus was gently sounded to approximately 8cm. Uterine manipulator was placed without difficulty. Legs then placed in parallel with the abdomen the tenaculum and the weighted speculum were removed. 2 towel clamps were placed at level of umbilicus. Marcaine was injected infraumbilical and a small incision was made. The 5 mm trocar was placed under direct visualization. CO2 gas was used to insufflate the intra-abdominal cavity. Upon inspection no gross abnormalities appreciated- the uterus tubes and ovaries appeared to be normal- tiny paratubal cyst on right . At this time then the LLQ and RLQ ports were placed First Marcaine was injected and small incision was made a knife and the 5 mm trocars were placed. At this time then tubes were traced back to the fimbriated ends. Enseal was used to coagulate and ligate along mesosalpynx bilaterally until tubes removed completely. Good hemostasis was appreciated. At this time procedure was deemed complete successful. The gas was desufflated on from the intra-abdominal cavity. The trochars were removed. Skin was closed using 4-0 Monocryl in a subcutaneous fashion. Dermabond glue wa s placed. Instrument lap and needle counts were correct ?2. The uterine manipulator was removed. Vaginal sweep was performed it was negative. There were no complications anticipated normal postoperative course for this patient. Grafts/Implants Used: none Procedure Start Time: 08:00 Procedure Stop Time: 08:21 Complications none Admit VTE Documentation VTE Present on Admission: Yes VTE Mechan Device Prophylaxis: SCD's VTE Pharm Prophylaxis ordered?: No Reason prophylaxis not ordered:: Procedure Not Indicated
== END 2023-03-07 08:55 | disposition home or self-care (01) | DRG 560 ==
LOC: WPOUT 16:47 → WP 16:53
PROVIDERS: Admitting Provider Obstetrics & Gynecology; Referring Provider Obstetrics & Gynecology; Visit Provider Obstetrics & Gynecology
DX: O76 Abnormality in fetal heart rate and rhythm complicating labor and delivery (principal); Z37.0 Single live birth; O99.814 Abnormal glucose complicating childbirth; F17.210 Nicotine dependence, cigarettes, uncomplicated; O62.3 Precipitate labor; O69.81X0 Labor and delivery complicated by cord around neck, without compression, not applicable or unspecified; O99.334 Smoking (tobacco) complicating childbirth; O77.0 Labor and delivery complicated by meconium in amniotic fluid; O43.893 Other placental disorders, third trimester; Z3A.38 38 weeks gestation of pregnancy; Z86.59 Personal history of other mental and behavioral disorders; Z87.59 Personal history of other complications of pregnancy, childbirth and the puerperium
CPT/HCPCS: 59025; 59050; 80307; 85025; 86780; 86850; 86900; 86901; 99221; G0378